=== PATIENT | male | born 1960 | race Caucasian/White ===

== ENCOUNTER → 2023-10-12 11:02 | Outpatient (REF) | payer OTHER, SELFPAY ==
[2023-10-12 12:38] LABS: Blood Urea Nitrogen 18 mg/dl (9-20); Calcium 9.2 mg/dl (8.4-10.2); Carbon Dioxide 21 mmol/L (22-30); Chloride 111 mmol/L (98-107); Glucose 142 mg/dl (70-99); Potassium 4.5 mmol/L (3.5-5.1); Sodium 139 mmol/L (135-145); eGFR > 60.00
== END ==
LOC: REG 11:02
PROVIDERS: ATTENDING PHYSICIAN Internal Medicine Gastroenterology; FAMILY PHYSICIAN Family Medicine
DX: K86.89 Other specified diseases of pancreas (principal)
CPT/HCPCS: 36415; 80048

== ENCOUNTER → 2023-10-14 13:06 | Outpatient (REF) | payer OTHER, SELFPAY | LOC: PAVMRI 13:06 | PROVIDERS: ATTENDING PHYSICIAN Internal Medicine Gastroenterology; FAMILY PHYSICIAN Family Medicine | DX: K86.89 Other specified diseases of pancreas (principal) | CPT/HCPCS: 74183; A9575 ==